=== PATIENT | male | born 1965 | race Caucasian/White ===

== ENCOUNTER 2017-09-14 09:59 | Inpatient (IN) | payer SELFPAY ==
--- NOTE | 2017-09-14 10:24 | ER Document Report ---
ED Medical Screen (RME) - General Chief Complaint: S/S of Possible Stroke Stated Complaint: ARM/LEG NUMBNESS Time Seen by Provider: 09/14/17 10:09 Notes: RAPID MEDICAL EVALUATION DISCLOSURE I have seen this patient as part of a Rapid Medical Evaluation and, if applicable, placed any initially appropriate orders. The patient will be seen and fully evaluated, including a full history and physical exam, by a provider ( in Main ED or Fast Track) when a room becomes available. 52-year-old male here with complaints of left upper and lower extremity tingling and weakness that started yesterday at 4 PM. He was getting out of his truck and fell because "my leg was not working". He also states that he is having trouble "making my arm work". His noticed that he had some left facial droop as well. He denies any prior history of stroke. He does not use any blood thinners. EXAM Minimal left facial droop LUE strength 4/5 with sensory deficit LLE strength 4+/5 with sensory deficit LLE pronator drift present RUE/RLE strength 5/5 with intact sensation Normal FNF NOTE Patient is no longer in the TPA window, now 18 hours post symptom onset However, patient is still in window for mechanical thrombectomy so taken straight to CT and nurse charge rn Cat notified TRAVEL OUTSIDE OF THE [place] IN LAST 30 DAYS: No - Related Data Allergies/Adverse Reactions: No Known Allergies Allergy (Verified 09/14/17 10:01) Physical Exam - Vital signs Vitals: Temp Pulse Resp BP Pulse Ox 97.9 F 56 L 16 128/83 H 99 09/14/17 10:09/14/17 10:09/14/17 10:09/14/17 10:04 09/14/17 10:04 Course - Vital Signs Vital signs: Temp Pulse Resp BP Pulse Ox 97.9 F 56 L 16 128/83 H 99 09/14/17 10:04 09/14/17 10:09/14/17 10:04 09/14/17 10:04 09/14/17 10:04
--- NOTE | 2017-09-14 10:31 | ER Document Report ---
ED Alteplase Inc/Exc Criteria - Inclusion Criteria: 1: Patient presented to ED within 3 hours of acute ischemic stroke symptom onset ? -: No - 24 hrs 2: Did baseline CT exclude intracranial hemorrhage and/or other risk factors? -: Yes 3: Is the age of the patient 18 years of age or greater? -: Yes : If any of the above questions are answered "NO" then stop, patient is not a candidate for Alteplase, : If all of the above questions are answered "YES" then continue with Exclusion Criteria. - Exclusion Criteria: 1: Is there evidence of intracranial hemorrhage on baseline CT? -: No 2: Is there suspicion of subarachnoid hemorrhage (even if CT negative)? -: No 3: Is there a history of serious head trauma, recent previous stroke or OK within 3 months? -: No 4: Does the patient have a clinical presentation consistent with OK or post-OK pericarditis? -: No 5: Is there history of intracranial hemorrhage? -: No 6: On repeated measurement is Systolic BP greater than 185mmHg or Diastolic BP greater that 110 mmHg and is aggressive treatment needed to reduce blood pressure to these limits (e.g. constant infusion of an anti-hypertensive)? 7: Did the patient awake with stroke symptoms? 8: Has the patient had a lumbar puncture or an arterial puncture at a non- compressile site within 7 days? 9: With in the last 14 days did the patient have surgery or major trauma? 10: Is the patient or less than 2 weeks? 11: Was there any active bleeding or acute trauma? 12: Does the patient have intracranial neoplasm, arteriovenous malformation or aneurysm? 13: Does the patient have abnormal glucose (less than 50 or greater than 400mg/ dl)? Record glucose in Comment. 14: Patient has rapidly improving symptoms at the time Alteplase is to be Administered. 15: Does the patient have any risks for bleeding, including but not limited to: a.: Current use of Coumadin with PT greater than 15 seconds or INR greater than 1.7. b.: Current use of Pradaxa (Dabigatran). c.: Heparin administereed within the past 48 hours and PTT elevated. d.: Platelet count less than 100,000/mm. e.: Major surgery or serious trauma within 14 days. f.: Gastrointestinal or gynecological urinary bleeding within 14 days. g.: Myocardial Infarction (OK) within 3 months. : If the answer to any of the above questions is "YES" then stop, the patient is not a candidate for Alteplase. : If the answer to all of the above questions is "NO" then the patient may be eligible for the Administration of Alteplase. : If the patient is noted to have seizure activity at onset of Stroke symptoms; Consult Neurologist for further evaluation. - The patient is: -: Included and is eligible to receive Alteplase. *Initiate bed placement at higher level of care* Reviewd risks & benefits of thrombolytic therapy: I have reviewed the risks and benefits of thrombolytic therapy with the patient and/or his/her family. -: Excluded and not eligible to receive Alteplase for the above exclusions. -: Excluded and not eligible to receive Alteplase for other reasons (specify in comments): - Diagnosis of TIA: -: Patient presented with transient symptoms that are now resolved and no other neurologic findings are currently present. List symptoms in comments. -: Patient is NOT a candidate for tPA. -: ____(put name in comment) has been consulted for admission and continued evaluation of risk factor assessment.
--- NOTE | 2017-09-14 10:32 | ER Document Report ---
ED Neuro Symptoms/Deficit - General Chief Complaint: S/S of Possible Stroke Stated Complaint: ARM/LEG NUMBNESS Time Seen by Provider: 09/14/17 10:09 Notes: 52-year-old male to the emergency department with a 24-hour history of left lower extremity weakness and numbness. Also having some weakness of the left upper extremity. Reported having some pain in the left lower extremity for couple of weeks. Went to a chiropractor. Was feeling better but then yesterday began having a funny feeling all over mostly on the left side of his body. Denies any chest pain. No fever. No chills or sweats. Patient smokes upwards of 2 packs of cigarettes a day. Family history of heart attack as well as stroke. Patient states that he lives on [employer] and cigarettes. TRAVEL OUTSIDE OF THE [place] IN LAST 30 DAYS: No - HPI Patient complains to provider of: Difficulty walking, Paresthesia, Weakness Onset: Yesterday - Related Data Allergies/Adverse Reactions: No Known Allergies Allergy (Verified 09/14/17 10:01) Past Medical History - General Information source: Patient - Social History Smoking Status: Current Every Day Smoker Cigarette use (# per day): Yes Smoking Education Provided: Yes Frequency of alcohol use: None Drug Abuse: None Lives with: Spouse/Significant other Family History: Reviewed & Not Pertinent - Past Medical History Cardiac Medical History: Reports: None Review of Systems - Review of Systems Constitutional: No symptoms reported EENT: No symptoms reported Cardiovascular: No symptoms reported Respiratory: No symptoms reported Gastrointestinal: No symptoms reported Genitourinary: No symptoms reported Male Genitourinary: No symptoms reported Musculoskeletal: See HPI Skin: No symptoms reported Hematologic/Lymphatic: No symptoms reported Neurological/Psychological: Weakness, Numbness, Tingling Physical Exam - Vital signs Vitals: Temp Pulse Resp BP Pulse Ox 97.9 F 56 L 16 128/83 H 99 09/14/17 10:04 09/14/17 10:04 09/14/17 10:04 09/14/17 10:04 09/14/17 10:04 Interpretation: Normal - General General appearance: Appears well, Alert - HEENT Head: Normocephalic, Atraumatic Eyes: Normal Pupils: PERRL - Respiratory Respiratory status: No respiratory distress Chest status: Nontender Breath sounds: Normal Chest palpation: Normal - Cardiovascular Rhythm: Regular Heart sounds: Normal auscultation Murmur: No - Abdominal Inspection: Normal Distension: No distension Bowel sounds: Normal Tenderness: Nontender Organomegaly: No organomegaly - Back Back: Normal, Nontender - Extremities General upper extremity: Normal inspection, Nontender, Normal color, Normal ROM , Normal temperature General lower extremity: Normal inspection, Nontender, Normal color, Normal ROM , Normal temperature, Normal weight bearing. No: Normal strength, Jose's sign - Neurological Neuro grossly intact: Yes Cognition: Normal Orientation: AAOx4 Donny Coma Scale Eye Opening: Spontaneous [place] Coma Scale Verbal: Oriented Donny Coma Scale Motor: Obeys Commands Donny Coma Scale Total: 15 Speech: Normal Cranial nerves: Normal Cerebellar coordination: Normal Motor strength normal: RUE, RLE. No: LUE, LLE Additional motor exam normals: Pronator drift, Weakness, Other - Patient has slight pronator drift on the left. Unable to keep left lower extremity elevated. Sensory: Normal - Psychological Associated symptoms: Normal affect, Normal mood - Skin Skin Temperature: Warm Skin Moisture: Dry Skin Color: Normal Course - Re-evaluation Re-evalutation: 09/14/17 11:47 She has signs and symptoms consistent with a subacute stroke. Head CT negative. Will order MRI. Consulted hospitalist, Dr. Estrella. Will admit at this time. Offered transfer however patient does not want to be transferred. 09/14/17 11:47 Laboratory 09/14/17 09/14/17 09/14/17 10:47 10:47 10:47 WBC 6.9 RBC 4.83 Hgb 14.5 Hct 41.5 MCV 86 MCH 30.1 MCHC 35.1 RDW 13.1 Plt Count 299 Seg Neutrophils % 62.0 Lymphocytes % 24.4 Monocytes % 9.7 Eosinophils % 2.4 Basophils % 1.5 Absolute Neutrophils 4.3 Absolute Lymphocytes 1.7 Absolute Monocytes 0.7 Absolute Eosinophils 0.2 Absolute Basophils 0.1 PT 13.8 INR 1.01 APTT 34.9 Sodium 142.0 Potassium 4.4 Chloride 103 Carbon Dioxide 28 Anion Gap 11 BUN 17 Creatinine 0.79 Est GFR ( Amer) > 60 Est GFR (Non-Af Amer) > 60 Glucose 93 Calcium 9.5 Total Bilirubin 0.4 Direct Bilirubin 0.4 Neonat Total Bilirubin Not Reportable Neonat Direct Bilirubin Not Reportable Neonat Indirect Bili Not Reportable AST 19 ALT 17 L Alkaline Phosphatase 71 Creatine Kinase 57 CK-MB (CK-2) Troponin I Total Protein 7.5 Albumin 4.5 09/14/17 10:47 WBC RBC Hgb Hct MCV MCH MCHC RDW Plt Count Seg Neutrophils % Lymphocytes % Monocytes % Eosinophils % Basophils % Absolute Neutrophils Absolute Lymphocytes Absolute Monocytes Absolute Eosinophils Absolute Basophils PT INR APTT Sodium Potassium Chloride Carbon Dioxide Anion Gap BUN Creatinine Est GFR ( Amer) Est GFR (Non-Af Amer) Glucose Calcium Total Bilirubin Direct Bilirubin Neonat Total Bilirubin Neonat Direct Bilirubin Neonat Indirect Bili AST ALT Alkaline Phosphatase Creatine Kinase CK-MB (CK-2) 0.99 Troponin I < 0.012 Total Protein Albumin Head CT 09/14/17 10:18 IMPRESSION: No acute intracranial changes. EVIDENCE OF ACUTE STROKE: NO. Chest X-Ray 09/14/17 10:23 IMPRESSION: NO ACUTE RADIOGRAPHIC FINDING IN THE CHEST. 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
--- NOTE | 2017-09-14 10:37 | RADIOLOGY REPORT (SQ) ---
EXAM DESCRIPTION: CHEST SINGLE VIEW COMPLETED DATE/TIME: 09/14/2017 10:28 am REASON FOR STUDY: stroke-like symptoms COMPARISON: None. EXAM PARAMETERS: NUMBER OF VIEWS: One view. TECHNIQUE: Single frontal radiographic view of the chest acquired. RADIATION DOSE: NA LIMITATIONS: None. FINDINGS: LUNGS AND PLEURA: No opacities, masses or pneumothorax. No pleural effusion. MEDIASTINUM AND HILAR STRUCTURES: No masses. Contour normal. HEART AND VASCULAR STRUCTURES: Heart normal in size. Normal vasculature. BONES: No acute findings. HARDWARE: None in the chest. OTHER: No other significant finding. IMPRESSION: NO ACUTE RADIOGRAPHIC FINDING IN THE CHEST. TECHNICAL DOCUMENTATION: JOB ID: [id number] [employer]- All Rights Reserved Reading location - IP/workstation name: [email or web address]
--- NOTE | 2017-09-14 10:53 | RADIOLOGY REPORT (SQ) ---
EXAM DESCRIPTION: CT HEAD WITHOUT COMPLETED DATE/TIME: 09/14/2017 10:34 am REASON FOR STUDY: LUE/LLE facial droop NIHSS 4; eval COMPARISON: None. TECHNIQUE: Axial images acquired through the brain without intravenous contrast. Images reviewed wi th bone, brain and subdural windows. Images stored on PACS. All CT scanners at this facility use dose modulation, iterative reconstruction, and/or weight based d osing when appropriate to reduce radiation dose to as low as reasonably achievable (ALARA). [facility]: Dose Right [facility]: CareDose [facility]: Dose Right [facility]: Teradose 4D [facility]: Smart [employer] RADIATION DOSE: CT Rad equipment meets quality standard of care and radiation dose reduction techniq ues were employed. CTDIvol: 53.2 mGy. DLP: 991 mGy-cm. mGy. LIMITATIONS: None. FINDINGS: VENTRICLES: Normal size and contour. CEREBRUM: No masses. No hemorrhage. No midline shift. No evidence for acute infarction. Normal gra y/white matter differentiation. No areas of low density in the white matter. CEREBELLUM: No masses. No hemorrhage. No alteration of density. No evidence for acute infarction. EXTRAAXIAL SPACES: No fluid collections. No masses. ORBITS AND GLOBE: No intra- or extraconal masses. Normal contour of globe without masses. CALVARIUM: No fracture. PARANASAL SINUSES: changes ethmoid sinusitis. SOFT TISSUES: No mass or hematoma. OTHER: No other significant finding. IMPRESSION: No acute intracranial changes. EVIDENCE OF ACUTE STROKE: NO. COMMENT: changes ethmoid sinusitis. Quality ID # [id number]: Final reports with documentation of one or more dose reduction techniques (e.g., Au tomated exposure control, adjustment of the mA and/or kV according to patient size, use of iterative reconstruction technique) TECHNICAL DOCUMENTATION: JOB ID: [id number] [employer]- All Rights Reserved Reading location - IP/workstation name: [facility]
[2017-09-14 11:09] LABS: ABSOLUTE BASOPHILS # (AUTO) 0.1 10^3/uL (0.0-0.2); ABSOLUTE EOSINOPHILS # (AUTO) 0.2 10^3/uL (0.0-0.6); ABSOLUTE LYMPHOCYTES (AUTO) 1.7 10^3/uL (0.5-4.7); ABSOLUTE MONOCYTES (AUTO) 0.7 10^3/uL (0.1-1.4); ABSOLUTE NEUT (AUTO) 4.3 10^3/uL (1.7-8.2); BASOPHILS % (AUTO) 1.5 % (0-2); EOSINOPHILS % (AUTO) 2.4 % (0-6); HEMATOCRIT 41.5 % (37.9-51.0); HEMOGLOBIN 14.5 g/dL (13.5-17.0); INTERNATIONAL RATION (INR) 1.01; LYMPHOCYTES % (AUTO) 24.4 % (13-45); MEAN CORPUSCULAR HEMOGLOBIN 30.1 pg (27.0-33.4); MEAN CORPUSCULAR HGB CONC 35.1 g/dL (32.0-36.0); MEAN CORPUSCULAR VOLUME 86 fl (80-97); MONOCYTES % (AUTO) 9.7 % (3-13); PLATELET COUNT 299 10^3/uL (150-450); PROTHROMBIN TIME 13.8 SEC (11.4-15.4); RED BLOOD COUNT 4.83 10^6/uL (4.35-5.55); RED CELL DISTRIBUTION WIDTH 13.1 % (11.5-14.0); TOTAL CELLS COUNTED % (AUTO) 100 %; WHITE BLOOD COUNT 6.9 10^3/uL (4.0-10.5)
[2017-09-14 11:10] LABS: PARTIAL THROMBOPLASTIN TIME 34.9 SEC (23.5-35.8)
[2017-09-14] MEDS ORDERED: ASPIRIN 81 MG TABLET, CHEWABLE PO ONE (11:23)
[2017-09-14] MEDS ORDERED: CLOPIDOGREL BISULFATE 75 MG TABLET PO ONE (11:24)
[2017-09-14 11:29] LABS: ALANINE AMINOTRANSFERASE 17 U/L (21-72); ALBUMIN 4.5 g/dL (3.5-5.0); ALKALINE PHOSPHATASE 71 U/L (38-126); ANION GAP 11 (5-19); ASPARTATE AMINO TRANSFERASE 19 U/L (17-59); BILIRUBIN,DIRECT 0.4 mg/dL (0.0-0.4); BILIRUBIN,TOTAL 0.4 mg/dL (0.2-1.3); BLOOD UREA NITROGEN 17 mg/dL (7-20); CALCIUM 9.5 mg/dL (8.4-10.2); CARBON DIOXIDE 28 mmol/L (22-30); CHLORIDE 103 mmol/L (98-107); CREATINE KINASE 57 U/L (55-170); GLUCOSE 93 mg/dL (75-110); POTASSIUM 4.4 mmol/L (3.6-5.0); TOTAL PROTEIN 7.5 g/dL (6.3-8.2)
[2017-09-14 11:40] LABS: CREATINE KINASE MB 0.99 ng/mL (<4.55)
[2017-09-14 11:41] LABS: TROPONIN I < 0.012 ng/mL
[2017-09-14 12:14] LABS: APPEARANCE,URINE CLEAR; BILIRUBIN,URINE NEGATIVE (NEGATIVE); COLOR,URINE YELLOW; GLUCOSE, URINE NEGATIVE (NEGATIVE); KETONES,URINE NEGATIVE (NEGATIVE); LEUKOCYTE ESTERASE,URINE NEGATIVE (NEGATIVE); NITRITE,URINE NEGATIVE (NEGATIVE); PROTEIN,URINE NEGATIVE (NEGATIVE); URINE SPECIFIC GRAVITY 1.013; UROBILINOGEN,URINE NEGATIVE mg/dL (<2.0)
--- NOTE | 2017-09-14 13:50 | EKG REPORT ---
SEVERITY:- NORMAL ECG - SINUS RHYTHM : Confirmed by: Carmine Boudreaux MD 14-Sep-2017 13:50:27
--- NOTE | 2017-09-14 14:52 | RADIOLOGY REPORT (SQ) ---
EXAM DESCRIPTION: MRI HEAD WITHOUT COMPLETED DATE/TIME: 09/14/2017 2:14 pm REASON FOR STUDY: stroke symptoms COMPARISON: CT dated 09/14/2017. TECHNIQUE: Multiplanar imaging includes non-contrasted T1, T2, FLAIR, and diffusion with ADC map seq uences. Images stored on PACS. LIMITATIONS: None. FINDINGS: ANATOMY: No anomalies. Normal vascular flow voids. Pituitary fossa normal. CSF SPACES: Normal in size and contour. No hemorrhage. CEREBRUM: Sulci and gyri normal in size and contour. Normal white matter signal on FLAIR imaging. No evidence of hemorrhage, mass, or extraaxial fluid collection. POSTERIOR FOSSA: No signal alteration. No hemorrhage. No edema, masses or mass effect. Internal tam tory canals, cerebello-pontine angles, mastoids normal. DIFFUSION IMAGING: Two small focal areas of restricted diffusion in the right thalamus. ORBITS: No masses. Globes normal. PARANASAL SINUSES: No fluid levels. Mucosa normal. OTHER: No other significant finding. IMPRESSION: TWO SMALL FOCAL AREAS OF RESTRICTED DIFFUSION IN THE RIGHT THALAMUS CONSISTENT WITH ACUT E INFARCT. EVIDENCE OF ACUTE STROKE: YES. RIGHT RESPIRATORY CARE PRACTITIONER TECHNICAL DOCUMENTATION: JOB ID: [id number] [employer]- All Rights Reserved Reading location - IP/workstation name: [email or web address]
--- NOTE | 2017-09-14 14:53 | RADIOLOGY REPORT (SQ) ---
EXAM DESCRIPTION: MRA HEAD WITHOUT COMPLETED DATE/TIME: 09/14/2017 2:14 pm REASON FOR STUDY: left weakness COMPARISON: None. TECHNIQUE: Axial 3-D [id number] acquisition imaging performed through the brain in the area of t he [place] of [place]. Images reformatted using 3-D MIPS. LIMITATIONS: None. FINDINGS: SOURCE IMAGES: No unexpected findings on source images. No large masses. 3-D MIP: No aneurysm. No occlusions. No significant stenosis. Dominant left vertebral artery. The right vertebral artery is patent and ends at the PICA. OTHER: No other significant finding. IMPRESSION: NORMAL MRA OF THE [place] OF [place]. TECHNICAL DOCUMENTATION: JOB ID: [id number] [employer]- All Rights Reserved Reading location - IP/workstation name: [email or web address]
--- NOTE | 2017-09-14 14:55 | RADIOLOGY REPORT (SQ) ---
EXAM DESCRIPTION: MRA NECK COMBO COMPLETED DATE/TIME: 09/14/2017 2:14 pm REASON FOR STUDY: left weakness COMPARISON: None. TECHNIQUE: MRA of the carotid and vertebral arteries was performed using 2D and 3D [id number] te chniques without and with the use of gadolinium. 3-D MIPs performed at the workstation and stored on PACS. CONTRAST TYPE AND DOSE: 20 mL Prohance. RENAL FUNCTION: GFR > 60. LIMITATIONS: None. FINDINGS: GREAT VESSEL ORIGINS: Normal. No stenoses. VERTEBRAL ARTERIES: No stenoses. No evidence for aneurysm or dissection. Dominant left vertebral ar carli. The right vertebral artery is small but patent and ends at the PICA. RIGHT CAROTID SYSTEM: No significant stenosis. LEFT CAROTID SYSTEM: No significant stenosis. OTHER: No other significant finding. IMPRESSION: NORMAL MRA OF THE CAROTIDS WITH AND WITHOUT CONTRAST. COMMENT: Quality ID #[id number]: Measurements of distal internal carotid diameter were used as the denomina tor for stenosis measurement. TECHNICAL DOCUMENTATION: JOB ID: [id number] [employer]- All Rights Reserved Reading location - IP/workstation name: [email or web address]
[2017-09-14 15:50] VITALS: BP 121/67
[2017-09-14] MEDS ORDERED: ENOXAPARIN SODIUM INJ 40 MG/0.4 ML DISP.SYRIN SUBCUT ONE (16:00)
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
--- NOTE | 2017-09-14 16:51 | PDOC DISCHARGE SUMMARY ---
General - Admit/Disc Date/PCP Admission Date/Primary Care Provider: 09/14/17 13:16 Discharge Date: 09/14/17 - Discharge Diagnosis (1) Acute right CLASSROOM PARAPROFESSIONAL stroke Is this a current diagnosis for this admission?: Yes Summary: Just subsequent to admission, MRI of the brain shows 2 right CLASSROOM PARAPROFESSIONAL strokes. Patient is now insisting on leaving AGAINST MEDICAL ADVICE despite this finding. (2) Tobacco use disorder, continuous Is this a current diagnosis for this admission?: Yes Summary: Patient states that he needs to leave AGAINST MEDICAL ADVICE because he wants a cigarette. - Additional Information Resuscitation Status: Full Code Discharge Diet: Cardiac Discharge Activity: Activity As Tolerated, Other - I recommned you not drive until you are evaluated by an out patient doctor and cleared for safety. Home Medications: No Home Medications 09/14/17 History of Present Illness History of Present Illness: 52-year-old man, long-term tobacco user, admitted with signs and symptoms consistent with stroke. Please see H&P just dictated. Hospital Course Hospital Course: This 52-year-old man has just been admitted to the hospitalist for stroke evaluation. MRI of the brain shows to CLASSROOM PARAPROFESSIONAL lesions, right side. He is now up to his room and wants to leave the hospital because he wants to have a cigarette. He states that he is going to go smoke a cigarette and then come right back. Unfortunately for him this is a non-smoking campus and he cannot do that. He states that he would like to leave the hospital. I spent a significant amount of time in the patient's room, and the presence of his , discussing the downside to discharging AGAINST MEDICAL ADVICE. We talked about the risks and complications related to leaving AMA after having had a stroke. Risks include having another stroke, dying, it is also possible that the patient will do okay. The patient is willing to accept the risks despite the seriousness. I have advised the patient to quit smoking tobacco if he can, to start taking an aspirin, to see a primary care doctor as soon as possible to have his cholesterol, A1c, blood pressure evaluated for possible stroke risk reduction treatment. We have also informed the patient that should he change his mind we want him to come back to the hospital so that we can reevaluate him and provide the best medical care possible. Despite our conversation the patient leaves AGAINST MEDICAL ADVICE, his got his discharge instructions that I completed from the patient's nurse. Physical Exam Vital Signs: Temp Pulse Resp BP Pulse Ox 98.1 F 50 L 15 121/67 100 09/14/17 14:37 09/14/17 14:37 09/14/17 14:37 09/14/17 14:37 09/14/17 14:37 Intake & Output 09/13/17 09/14/17 09/15/17 06:59 06:59 06:59 Weight 96.1 kg General appearance: PRESENT: mild distress Musculoskeletal exam: PRESENT: ambulatory Neurological exam: PRESENT: alert, awake, oriented to person, oriented to place , oriented to situation, CN II-XII grossly intact Psychiatric exam: PRESENT: agitated Results Impressions: Head CT 09/14/17 10:18 IMPRESSION: No acute intracranial changes. EVIDENCE OF ACUTE STROKE: NO. Chest X-Ray 09/14/17 10:23 IMPRESSION: NO ACUTE RADIOGRAPHIC FINDING IN THE CHEST. Head MRI 09/14/17 11:26 IMPRESSION: TWO SMALL FOCAL AREAS OF RESTRICTED DIFFUSION IN THE RIGHT THALAMUS CONSISTENT WITH ACUTE INFARCT. EVIDENCE OF ACUTE STROKE: YES. RIGHT CLASSROOM PARAPROFESSIONAL Brain MRI with MRA 09/14/17 11:34 IMPRESSION: NORMAL MRA OF THE [place] OF [place]. Neck MRA 09/14/17 11:34 IMPRESSION: NORMAL MRA OF THE CAROTIDS WITH AND WITHOUT CONTRAST. Qualifiers - * PATIENT BEING DISCHARGED WITH ANY OF THE FOLLOWING DIAGNOSIS: Stroke Stroke Pt being discharged on Anti-thrombolytic therapy?: No Reason(s) for not prescribing Anti-thrombolytic therapy:: Drug declined by patient Stroke Pt being discharged on Anti-coagulation therapy?: No Reason(s) for not prescribing Anti-coagulation therapy:: Drug declined by patient Stroke Pt being discharged on Statins?: No Reason(s) for not prescribing Statins therapy:: Drug declined by patient Plan Discharge Plan: Patient is leaving AMA. He states he will not take any medications, his agrees. Please see above for discussion we had related to risks involved with leaving AMA. I have advised the patient to seek outpatient medical care for lab testing and further medical therapies for stroke prevention. Hospital with any concerning symptoms and that any point if he changes his mind. Time Spent: Greater than 30 Minutes
[2017-09-14] MEDS ORDERED: ATORVASTATIN CALCIUM 20 MG TABLET PO SCH (22:00)
[2017-09-15] MEDS ORDERED: ASPIRIN 325 MG TABLET, ENT COATED PO SCH (10:00)
[2017-09-15] MEDS ORDERED: ENOXAPARIN SODIUM INJ 40 MG/0.4 ML DISP.SYRIN SUBCUT SCH (10:00)
== END 2017-09-14 16:45 | disposition left against medical advice (07) | DRG 66 ==
LOC: ER 09:59 → EH 13:16 → 4W 14:17
PROVIDERS: ADMIT Internal Medicine; ATTEND Internal Medicine
DX: I63.431 Cerebral infarction due to embolism of right posterior cerebral artery (principal); F17.210 Nicotine dependence, cigarettes, uncomplicated; R20.0 Anesthesia of skin; M19.90 Unspecified osteoarthritis, unspecified site; Z90.49 Acquired absence of other specified parts of digestive tract; Z82.49 Family history of ischemic heart disease and other diseases of the circulatory system; Z82.3 Family history of stroke; Z83.3 Family history of diabetes mellitus; Z84.1 Family history of disorders of kidney and ureter; Z80.51 Family history of malignant neoplasm of kidney
CPT/HCPCS: 36415; 70450; 70544; 70549; 70551; 71045; 80053; 81001; 82550; 82553; 84484; 85025; 85610; 85730; 93005; 93010; 99291; A9576